=== PATIENT | male | born 1950 | race Caucasian/White ===

== ENCOUNTER → 2021-09-24 | Day surgery (SDC) | payer MEDICARE ==
[~2021-09-24] MED LIST: CRESTOR20 MG PO; ECOTRIN81 MG PO; FISH OIL 1,0001 EACH PO; GLUCOPHAGE 500500 MG GT; LEVOTHYROXINE100 MC2 PO; MICARDIS PO; MULTI-VITAMIN1 EACH PO; NORCO 5-325 TA1 EACH PO; SYNTHROID75 MCG PO; TOPROL XL50 MG PO; VITAMIN B12 OTC PO; ZETIA10 MG PO
== END | disposition home or self-care (01) ==
LOC: OR 07:19
PROVIDERS: Internal Medicine Gastroenterology
PROC: 0DJD8ZZ Inspection of Lower Intestinal Tract, Via Natural or Artificial Opening Endoscopic (ICD-10-PCS; principal; 2021-09-24 09:30)
DX: Z12.11 Encounter for screening for malignant neoplasm of colon (principal); K64.1 Second degree hemorrhoids; K57.30 Diverticulosis of large intestine without perforation or abscess without bleeding; Z86.010 Personal history of colon polyps; Z80.0 Family history of malignant neoplasm of digestive organs; I25.10 Atherosclerotic heart disease of native coronary artery without angina pectoris; I10 Essential (primary) hypertension; E78.5 Hyperlipidemia, unspecified; M19.90 Unspecified osteoarthritis, unspecified site; I25.2 Old myocardial infarction; Z79.82 Long term (current) use of aspirin; R73.03 Prediabetes; Z79.84 Long term (current) use of oral hypoglycemic drugs; Z79.899 Other long term (current) drug therapy; Z79.890 Hormone replacement therapy; E03.9 Hypothyroidism, unspecified
CPT/HCPCS: 82962; J2704; J7040